=== PATIENT | male | born 1995 | race American Indian/Alaskan Native ===

== ENCOUNTER 2019-01-07 10:00 | Outpatient (CLI) | payer OTHER ==
--- NOTE | 2019-01-07 11:47 | XRay Report ---
LUMBOSACRAL SPINE, 3 VIEWS HISTORY: Disability exam. L1 fracture. FINDINGS: No comparisons at this facility. There is been previous posterior stabilization from T12-L2 . Subtle deformity of the superior endplate of L1 is identified consistent with a fracture, age indet erminate. Loss of height at L2 1 is approximately 10%. No retropulsion of bony fragments toward the c anal. The remaining lumbar vertebra intact and within normal limits. The disc spaces and posterior el ements are unremarkable. Sacrum and SI joints are within normal limits. IMPRESSION: Stable appearance of the posterior stabilization from T12-L2. L1 superior endplate fracture of indete rminate age, likely subacute to chronic. No acute process is noted. Signer Name: Jw Cervantes Jr, MD Signed: 01/07/2019 10:43 AM Workstation Name: [id number]
== END 2019-01-07 10:01 | disposition home or self-care (01) ==
LOC: XRAY 10:00
PROVIDERS: ATTEND Internal Medicine
DX: Z02.71 Encounter for disability determination (principal); S32.019A Unspecified fracture of first lumbar vertebra, initial encounter for closed fracture; M43.8X6 Other specified deforming dorsopathies, lumbar region; X58.XXXA Exposure to other specified factors, initial encounter; Y93.89 Activity, other specified; Y92.89 Other specified places as the place of occurrence of the external cause; Y99.8 Other external cause status
CPT/HCPCS: 72100